=== PATIENT | female | born 1940 | race Caucasian/White ===

== ENCOUNTER 2021-01-17 12:04 | Emergency (ER) | payer MEDICARE ==
[2021-01-17 13:02] LABS: #Basophils 0.1 thou/uL (0.0-0.2); #Eosinphils 0.1 thou/uL (0.0-0.7); #Lymphocytes 1.4 thou/uL (1.20-3.40); #Monocytes 0.8 thou/uL (0.11-0.59); #Neutrophils 7.1 thou/uL (1.40-6.50); %Basophils 0.8 % (0.0-1.0); %Eosinophils 1.1 % (0.0-10.0); %Lymphocytes 14.6 % (21.0-51.0); %Neutrophils 75.6 % (42.0-75.0); Hemoglobin 14.1 g/dL (12.0-16.0); Mean Corpuscular HGB CONC 30.5 g/dL (32.0-36.0); Mean Corpuscular Hemoglobin 29.5 pg (27.0-31.0); Mean Corpuscular Volume 96.9 fL (78.0-98.0); Mean Platelet Volume 9.4 fL (7.4-10.4); Platelet Count 163 thou/uL (130-400); RBC Distribution Width 12.1 % (11.5-14.5); Red Blood Cell (RBC) Count 4.79 mill/uL (4.20-5.40); White Blood Cell (WBC) Count 9.4 thou/uL (4.8-10.8)
[2021-01-17 13:05] LABS: Anion Gap 16 mmol/L (10-20); BUN (Urea Nitrogen) 25 mg/dL (9.8-20.1); Calc. Creatinine Clearance 0 mL/min (70-130); Calcium 9.2 mg/dL (7.8-10.44); Carbon Dioxide 25 mmol/L (23-31); Chloride 104 mmol/L (98-107); Glucose 104 mg/dL (83-110); Sodium 141 mmol/L (136-145)
[2021-01-17] MEDS ORDERED: Clindamycin 150 MG CAP ONE ×2 (13:15)
[2021-01-17] MEDS ORDERED: Cephalexin 250 MG CAP ONE (13:15)
== END 2021-01-17 13:54 | disposition home or self-care (01) ==
LOC: NAV ERS 12:04
DX: L03.115 Cellulitis of right lower limb (principal)
CPT/HCPCS: 80048; 85025